=== PATIENT | male | born 1995 | race Two or more races ===

== ENCOUNTER 2022-10-29 10:49 | Emergency (ER) | payer OTHER ==
[~2022-10-29] VITALS: Ht 167.6 cm; Wt 97.5 kg
[2022-10-29 12:41] LABS: HEMATOCRIT 49.5 % (39.0-48.0); HEMOGLOBIN 16.8 g/dL (13-16.00); MEAN CELL VOLUME 89.4 fL (80.0-100.00); MEAN CORPUSCULAR HEMOGLOBIN 30.3 pg (27.00-32.0); MEAN CORPUSCULAR HGB CONC 33.8 g/dl (32.0-36.0); PLATELET COUNT 253 K/uL (150-450); RED BLOOD COUNT 5.54 M/uL (4.00-6.00); RED CELL DISTRIBUTION WIDTH 13.3 % (11.5-14.5)
[2022-10-29] MEDS ORDERED: ZITHROMAX500 MG PO (13:40)
[2022-10-29] MEDS ORDERED: TUSNEL LIQUID178 ML PO (13:40)
== END 2022-10-29 13:46 | disposition home or self-care (01) ==
LOC: ER 10:50
PROVIDERS: General Practice
DX: J06.9 Acute upper respiratory infection, unspecified (principal); Z20.822 Contact with and (suspected) exposure to COVID-19